=== PATIENT | male | born 1945 ===

== ENCOUNTER 2021-10-14 05:30 | Day surgery (SDC) | payer OTHER ==
[~2021-10-14] VITALS: Ht 167.6 cm; Wt 97.5 kg
[~2021-10-14 05:30] MED LIST: ALLERGY RELIE15.8 ML NASAL; ATORVASTATIN CA10 MG PO; AZILECT1 MG PO; CARBIDOPA-LEVO1 EAC1 PO; CARVEDILOL25 MG; COMBIVENT RESPIM4 GM IH; IRBESARTAN75 MG PO; MONTELUKAST SOD10 MG PO; TAMS0.4C PO; TENORMIN50 M1 PO
[2021-10-14] MEDS ORDERED: SURFAK240 M1 PO (15:39)
[2021-10-14] MEDS ORDERED: CEPHALEXIN500 M1 PO (15:40)
[2021-10-14] MEDS ORDERED: PYRIDIUM200 MG PO (15:41)
[2021-10-14] MEDS ORDERED: NEURONTIN300 MG PO (15:42)
== END 2021-10-14 19:20 | disposition home or self-care (01) ==
LOC: CIR.AMB 05:30
PROVIDERS: ATTEND Surgery
DX: C67.9 Malignant neoplasm of bladder, unspecified (principal); Z20.822 Contact with and (suspected) exposure to COVID-19; I10 Essential (primary) hypertension; Z86.16 Personal history of COVID-19; J45.909 Unspecified asthma, uncomplicated; N40.0 Benign prostatic hyperplasia without lower urinary tract symptoms; G20 Parkinson's disease